=== PATIENT | female | born 1945 | race Caucasian/White ===

== ENCOUNTER 2016-11-12 07:45 | Day surgery (SDC) | payer OTHER ==
[2016-11-12 08:19] LABS: HEMOGLOBIN 12.9 g/dL (12.2-16.2)
[2016-11-12 08:20] LABS: LYMPH # 1.7 K/mm3 (0.7-4.5); LYMPH % 29.5 % (10-50.0)
[2016-11-12 08:25] LABS: BUN 14 mg/dL (7-18); GFR (ESTIMATED) 55 ML/MIN (59-)
--- NOTE | 2016-11-12 10:50 | RADIOLOGY REPORT PS360 ---
CARDIAC CATHETERIZATION DATE OF CATHETERIZATION:11/12/2016 10:37 AM PROCEDURES: 1. Left heart catheterization 2. Left ventriculogram 3. Selective coronary angiogram 4. Drug-eluting stent deployment to the proximal mid LAD INDICATION FOR TEST: 1. Angina pectoris class III 2. Coronary artery disease 3. Nonsustained ventricular tachycardia 4. Syncope 5. 2 antianginal's with persistent class III angina Informed consent was obtained prior to the procedure. COMPLICATIONS: None ESTIMATED BLOOD LOSS: Less than 10 ml. TECHNIQUE: One percent lidocaine used to anesthetize the right anterior aspect of the wrist. The right radial artery was accessed via the Seldinger technique. A 6 Nigerian sheath was placed in the right radial artery. 2.5 mg of verapamil, 800 mcg of nitroglycerin and 5000 U Heparin were given through the arterial sheath. A trap hydrophilic catheter was used to perform left heart catheterization left ventriculogram and selective coronary angiogram. At the end of the diagnostic angiogram and additional 2000 units of heparin was administered intravenously producing an ACT out of range. A JL 36 Nigerian guide catheter was used intubate the left main artery and a BMW wire was placed in the mid LAD going into a septal tool and die repair. A 3 mm x 38 mm resolute Cobb stent was deployed at 14 steve reducing the stenosis to 10-20%. A 3 mm x 12 mm noncompliant balloon was placed in the most severe area and deployed at 20 steve to post dilate. 800 mcg of intracoronary nitroglycerin was administered and WILLIAM-3 flow was present both before and after the procedure. Brilinta 180 mg orally was given on the table prior to introduction of the stent. At the end of the procedure the ACT remain out of range. The apparatus was removed the sheath was removed good hemostasis was achieved using TR banding patient was transferred. [facility] area in stable condition ANGIOGRAPHIC RESULTS: 1. The left main artery normal 2. The left anterior descending artery has a proximal 30-40% stenosis followed by an additional 30-40% stenosis followed by a focal eccentric 80-90% stenosis. Distal to this there are additional 20% stenoses 3. The circumflex artery is codominant and has proximal 20 and mid vessel 30% stenoses. The large second obtuse marginal artery has a 60% concentric stenosis at a 2.25 mm area. This is proximal to 2 small to medium branches. 4. The right coronary artery is a codominant system and has mild 10-20% proximal stenoses and normal distally 5. The WILKINS ventriculogram reveals normal 65% 6. The left ventricular end-diastolic pressure 10 mmHg IMPRESSION: 1. Severe disease in the proximal to mid LAD as described above 2. Successful stenting of the proximal to mid LAD severe disease reduced to 0% with 1 drug-eluting stent 3. Persistent moderate to severe disease in a moderate to large second obtuse marginal artery 4. Normal ejection fraction 5. Normal left ventricular end-diastolic pressure PLAN: 1. Brilinta and aspirin for 6 months 2. LDL less than 55 3. Cardiac rehabilitation 4. Avoidance of tobacco products 5. Risk factor modification 6. Control of hypertension 7. Should patient continue to have recalcitrant angina the second obtuse marginal artery is amenable to stenting however I believe medical management is most warranted at this time
[2016-11-12 15:17] VITALS: BP 133/72
== END 2016-11-12 15:29 | disposition home or self-care (01) ==
LOC: CATHLAB 07:45
PROVIDERS: Internal Medicine
PROC: 4A023N7 Measurement of Cardiac Sampling and Pressure, Left Heart, Percutaneous Approach (ICD-10-PCS; principal; 2016-11-12)
PROC: B2111ZZ Fluoroscopy of Multiple Coronary Arteries using Low Osmolar Contrast (ICD-10-PCS; 2016-11-12)
PROC: B2151ZZ Fluoroscopy of Left Heart using Low Osmolar Contrast (ICD-10-PCS; 2016-11-12)
PROC: 027034Z Dilation of Coronary Artery, One Artery with Drug-eluting Intraluminal Device, Percutaneous Approach (ICD-10-PCS; 2016-11-12)
DX: I25.118 Atherosclerotic heart disease of native coronary artery with other forms of angina pectoris (principal); R55 Syncope and collapse; I10 Essential (primary) hypertension; E11.9 Type 2 diabetes mellitus without complications; I47.2 Ventricular tachycardia

== ENCOUNTER 2016-11-13 11:17 | Observation (INO) | payer OTHER ==
[2016-11-13] VITALS (7 sets, daily range): BP systolic 123–144; BP diastolic 52–79
[~2016-11-13] VITALS: Ht 157.5 cm; Wt 70.0 kg
[~2016-11-13 11:17] MED LIST: ADULT LOW DOSE81 MG PO; ASPIRIN 81MG TA81 MG PO; ATENOLOL100 MG PO; ATIVAN1 MG PO; BACTRIM DS 8001 TAB PO; FLAGYL 500MG.500 MG PO; FLEXERIL10 M1 PO; GABAPENTIN100 MG PO; GLYBURIDE 5MG TA5 MG PO; GLYBURIDE2.5 MG PO; HYOMAX0.125 MG PO; INSULIN GL100 UNITS/ SC; LANTUS INS100 UNITS/ SC; LEVOFLOXACIN 5500 M1 PO; LOMOTIL 2.5MG.2.5 MG PO; LORAZEPAM1 MG PO; LOTREL 10 MG-401 CAP PO; MECLIZINE25 MG PO; METFORMIN500 MG PO; MIRALAX(PO17 GM/1 PA PO; OMEPRAZOLE40 MG PO; ONGLYZA5 MG PO; PERCOCET 325 MG1 TA4 PO; PHENERGAN 25MG.25 M1 PO; PROMETHAZINE25 M1 PO; SYNTHROID 0.00.05 MG PO; SYNTHROID0.025 MG PO; TENORMIN50 MG PO; TESSALON PERLE100 MG PO; TRAMADOL 50MG T50 MG PO; TRAMADOL HYDROC50 M1 PO; TRAMADOL50 M1 PO
--- NOTE | 2016-11-13 11:19 | Emergency Room Report ---
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 Clinical Suspician of Infection? Mental Status: Sepsis Risk: Have you (or family members/close friends) recently traveled outside the [place]? If Yes, where/when: Have you had exposure to infectious disease within the past month? TB? Other? Specify: Comment The patient arrives by ambulance complaining of chest pain. She had a stent performed yesterday by Dr. Alcala. She says that she began having the pain while in the hospital, but was told that it was normal. She says that she was up all my long and could not sleep. She called Dr. Alcala today and was advised to come to the emergency room. She says that she was given nitroglycerin during transport and her pain eased up so that she now just has pressure. She says the pressure in her chest has been an ongoing chronic problem which is not new. She says that when she came in for her cardiac cath yesterday she had the pressure at that time as it had been ongoing for some time. She says that she had told Dr. Alcala about that pressure the day before and that is what had led to her cardiac cath. She was given 2 new medications after her procedure, but states that she has not taken either of the new medications yet. She is on aspirin at home. She does not have nitroglycerin at home. ALLERGIES Coded Allergies: Penicillins (I-HIVES 01/13/16) codeine (ABD PAIN 01/13/16) erythromycin base (From E-MYCIN) (NA-NAUSEA/VOMITING 01/13/16) iodine (I-RASH 07/18/16) tuberculin,PPD,multi-puncture (10/06/16) Home Medications Active Scripts Atenolol (Tenormin) 50 MG PO BID #60 TAB Ref 4 Prov: 10/07/16 Reported Medications AMLODIPINE BESYLATE/BENAZEPRIL (Lotrel 10-40 MG Capsule) 1 CAP PO DAILY Levothyroxine Sodium (Synthroid 0.05MG) 0.05 MG PO DAILY Aspirin (Adult Low Dose Aspirin EC) 81 MG PO QHS Glyburide (Glyburide 5MG) 10 MG PO BID Gabapentin (Gabapentin 100MG) 200 MG PO TID Lorazepam (Ativan 1MG) 1 MG PO TID #90 TAB Ticagrelor (Brilinta) 90 MG PO BID Insulin Glargine (Lantus Insulin Vial) 37 UNITS SC BID Atorvastatin Calcium 40 MG PO QHS #30 History Medical History General CAD? Yes Angina: Yes [place]: No Hypertension? Yes Hyperlipidemia? Yes CHF? No DVT? No PE? No COPD? No Asthma? No Anemia? No GERD? Yes Gastric ulcers? No GI Bleed? No Hernia? No Thyroid Problems? Yes Hypothyroidism? Yes CVA? No Seizures? No Diabetes? Yes Insulin Dependent: Yes Insulin Pump: No Home FSBS? Yes Renal Insuffiency? No End Stage Renal Disease? No UTI? Yes Stones? No BPH? No GB Disease: Yes Nephritic Syndrome? No Asplenia? No Hepatitis? No Sickle Cell Disease? No Arthritis? No Migraines? No Cataracts? Yes Glaucoma? No MRSA? No HIV? No TB? No Anxiety? Yes Depression? Yes Cancer? Yes Site: CERVIX More? Yes Additional hx: Echo 2005 Neg Cardiolyte 01/16/2016 63% EF Carotids 20-49% stenosis 07/04/2014 Holter, rare ectopy PVC's, PAC's 2010 heart cath: mild irregularities LAD, RCA CT head 10/02/2005 Immunization Hx DT/Tetanus Unknown Flu 2015-FSN Pneumonia Received In Past Surgical Hx Previous Surgery?Y CHOLECYSTECTOMY TUBAL LIGATION D & C EGD COLONOSCOPY VAGINAL HYSTERCTOMY Family History Family Hx Diabetes Yes CAD Yes Hypertension Yes Hyperlipidemia Yes Cancer Yes TB Yes Social History Smoking Hx Packs/day 1 1/2 - 2 Packs Alcohol Alcohol: No Additionial History Additional History Cardiac cath results reviewed. The patient had severe disease in her left anterior descending, 80-90 percent stenosis. She had a stent placed. She has a 60 percent stenosis of the second obtuse marginal which was felt to be amenable to stenting if she has recalcitrant angina. Review of Systems All Other Systems Reviewed and Negative Constitutional denies diaphoresis Respiratory shortness of breath Cardiovascular chest pain Physical Exam Vital Signs Vital Signs Date Time Temp Pulse Resp B/P Pulse O2 O2 Flow FiO2 Ox Delivery Rate 11/13 1421 97.9 63 18 139/73 98 2 11/13 1322 63 18 133/56 98 2 11/13 1242 66 18 142/78 99 2 11/13 1218 64 18 129/74 99 2 11/13 1117 97 11/13 1117 98.1 72 18 140/79 97 General Appearance no apparent distress Eye Exam - bilateral eye normal exam, bilateral eye PERRL, bilateral eye EOMI Ear, Nose, Throat hearing grossly normal, normal ENT inspection Neck normal inspection, non-tender, supple, full range of motion Respiratory Status Yes: trachea midline, chest symmetrical, non tender chest. No: respiratory distress. Lung Sounds bilateral: normal breath sounds, lungs clear. Cardiovascular normal exam, regular rate/rhythm, no peripheral edema, no gallop, no JVD, no murmur, no rub, normal peripheral pulses Peripheral Pulses Pulses normal Yes Gastrointestinal normal bowel sounds, normal exam, non tender, soft, no organomegaly Extremities sling on RIGHT arm, 2 x 2 gauze and Tegaderm present over angiogram puncture wound RIGHT wrist. no erythema or edema at puncture site. States nontender. Neurologic alert, lawn mower II-XII nml as tested, normal exam, oriented x 3 Mental status normal mood/affect Skin intact, normal color, warm/dry Medical Decision Making LABS/Meds/Orders Pt receiving controlled substance in ED? No Results/Orders Laboratory Tests 11/13/16 1355: Urine Color DK YELLOW, Urine Appearance CLEAR, Urine pH 6.0, Ur Specific [place] 1.025, Urine Protein 2+ H, Urine Ketones NEGATIVE, Urine Blood 2+ H, Urine Nitrate NEGATIVE, Urine Bilirubin NEGATIVE, Urine Urobilinogen 0.2, Ur Leukocyte Esterase NEGATIVE, Urine WBC 5-10, Ur Squamous Epith Cells 3-5, Urine Bacteria 2 +, Hyaline Casts 3-5, Urine Mucus 1+, Urine Glucose 2+ H 11/13/16 1200: Lactic Acid 1.6 11/13/16 1155: Triglycerides 155, Cholesterol 189, LDL Cholesterol 121.0, VLDL Cholesterol 31.0 , HDL Cholesterol 37.0 L, TSH 1.46, Free T4 Index 7.9, Thyroxine (T4) 10.6, T3 Uptake 30 L 11/13/16 1155: Sodium 140, Potassium 3.8, Chloride 106, Carbon Dioxide 24, BUN 20 H, Creatinine 1.2 H, Estimated Creat Clear 49 L, Estimated GFR (MDRD) 44 L, Glucose 227 H, Calcium 9.8, Total Bilirubin 1.2 H, AST 23, ALT 49, Alkaline Phosphatase 112, Creatine Kinase 153, CK-MB (CK-2) Rel Index 2.6, CK and CKMB Interp 4.0 H, Troponin I 0.71 H, Total Protein 8.1, Albumin 3.9, Globulin 4.2 H, Albumin/Globulin Ratio 0.9 L, WBC 18.0 H, RBC 4.96, Hgb 14.0, Hct 42.8, MCV 86.2, RDW 15.4, Plt Count 197, Gran % 85.7 H, Gran # 15.4 H, Lymphocytes % 12.1, Monocytes % 2.2, Lymphocytes # 2.2, Monocytes # 0.4, PUBS MCHC 32.7, MCH 28.2 11/13/16 1120: WBC 22.4 *H, RBC 5.15, Hgb 14.8, Hct 44.2, MCV 85.9, RDW 15.3, Plt Count 238, Gran % 86.9 H, Gran # 19.5 H, Total Counted 100, Lymphocytes % 10.6, Monocytes % 2.5, Neutrophils 86 H, Band Neutrophils 3, Lymphocytes (Manual) 9 L, Lymphocytes # 2.4, Monocytes (Manual) 2, Monocytes # 0.6, Platelet Estimate NORMAL, PUBS MCHC 33.5, MCH 28.7 Current Medication Orders Sig/Wilver Start time Last Medication Dose Route Stop Time Status Admin Levothyroxine Sodium 0.05 MG DAILY 11/14 09 AC PO Lisinopril 20 MG DAILY 11/14 09 AC PO Glyburide 5 MG DAILY-DM 11/14 0700 AC PO Atenolol 50 MG BID 11/13 2099 AC PO Gabapentin 100 MG TID 11/13 2100 AC PO Lorazepam 1 MG TID 11/13 2100 AC PO Pantoprazole Sodium 40 MG QHS 11/13 2100 AC PO Diagnostic Test (Pha) 1 EACH W/MEALS&HS 11/13 1700 AC FS 01/12 1659 Insulin Human [rDNA See Dose W/MEALS&HS 11/13 1700 AC origin] Insts (1) SC Isosorbide 30 MG DAILY 11/13 1415 AC 11/13 Mononitrate PO 1547 Ranolazine 500 MG BID 11/13 1415 AC 11/13 PO 1547 Ticagrelor 90 MG BID 11/13 1415 AC 11/13 PO 1548 Amlodipine Besylate 5 MG DAILY 11/13 1408 AC 11/13 PO 1546 Aspirin 81 MG DAILY 11/13 1400 AC PO Sodium Chloride 10 ML PRN PRN 11/13 1130 AC IV 11/14 1127 Dose Instructions: (1)Insulin Human [rDNA origin]: SEE ADMIN CRITERIA Orders Procedure Date/time Status CBC WITH AUTO DIFF 11/14 UNK Active BASIC METABOLIC PROFILE 11/14 UNK Active DIET-1800 CALORIE ADA 11/13 D Active CULTURE, URINE 11/13 1355 Active Decision to admit 11/[address] HEAD REQ 11/13 1232 Active CBC WITH AUTO DIFF 11/13 1228 Complete CULTURE, BLOOD 11/13 1150 Active URINALYSIS/COMPLETE 11/13 1150 Complete LACTIC ACID 11/13 1150 Complete ELECTROCARDIOGRAM REQUEST 11/13 1128 Active IV SALINE LOCK 11/13 1128 Active OXYGEN PER NURSE 11/13 1128 Active CBC WITH AUTO DIFF 11/13 1128 Complete CARDIAC ENZYMES 11/13 1128 Complete CHEM 12 PROFILE 11/13 1128 Complete DIFFERENTIAL-WBC 11/13 1120 Complete 12 LEAD EKG-[facility] (INITIAL) 11/13 UNK Active VITAL SIGNS 11/13 UNK Active THYROID PANEL 2 (WITH TSH) 11/13 UNK Complete LIPID PROFILE 11/13 UNK Complete FSBS REQUEST BY CARE AREA 11/13 UNK Active CM/EKG CM/EKG Comments EKG interpreted by Jame Roth MD: Rhythm: sinus Rate: 73 [place]: normal Ectopy: none Conduction: normal ST Segment Changes: none T Wave Changes: Nonspecific Q Waves: none No evidence of acute ischemia or injury Prior electrocardiagrams reviewed. No change from prior tracings. XRAY/CT/US XRAY/CT/US XRAY chest Comment Chest x-ray interpreted by Jame Roth M.D. No infiltrate, pneumothorax, pleural effusion, or wide mediastinum. CT head Comment CT scan interpreted by radiologist: Negative Progress - Patient seen by MARIE Dunbar for Dr. Alcala. 1:40 PM: Case discussed with Manjinder again. He says the patient can be admitted to Dr. Alcala service and he will write admission orders. Departure Departure Disposition Still a Patient Clinical Impression Primary Impression: Chest pain, precordial Secondary Impressions: Headache Qualifiers: Headache type: unspecified Headache chronicity pattern: acute headache Intractability: not intractable Qualified Code: R51 - Headache Leukocytosis Qualifiers: Leukocytosis type: unspecified Qualified Code: D72.829 - Elevated white blood cell count, unspecified Condition STABLE Referrals Allyson Hall MD (Family) ED Critical Care Critical Care No at 1600
[2016-11-13] MEDS ORDERED: ATORVASTATIN CA40 MG PO (11:26)
[2016-11-13 11:44] LABS: HEMOGLOBIN 14.8 g/dL (12.2-16.2); LYMPH # 2.4 K/mm3 (0.7-4.5); LYMPH % 10.6 % (10-50.0)
[2016-11-13 12:24] LABS: NEUTROPHILS 86 % (42-76)
[2016-11-13 12:39] LABS: LYMPH # 2.2 K/mm3 (0.7-4.5); LYMPH % 12.1 % (10-50.0)
--- NOTE | 2016-11-13 13:14 | RADIOLOGY REPORT PS360 ---
CT HEAD W/O CONTRAST HISTORY: Severe headache HEADACHE ORDERING PHYSICIAN: Jame Roth MD PATIENT AGE: 71 years COMPARISON: 10/05/2016 TECHNIQUE: Axial images obtained without contrast. Brain and bone windows reviewed. FINDINGS: No midline shift, mass effect, intracranial hemorrhage, hydrocephalus, or extra-axial fluid collection is evident. The calvarium has an unremarkable appearance. No mastoid effusion. The visualized paranasal sinuses are unremarkable. IMPRESSION: Negative CT head without contrast. No acute finding.
--- NOTE | 2016-11-13 13:30 | RADIOLOGY REPORT PS360 ---
CHEST-PORTABLE HISTORY: CHEST PAIN ORDERING PHYSICIAN: Jame Roth MD PATIENT AGE: 71 years COMPARISON: None available FINDINGS: The cardiomediastinal silhouette and pulmonary vascularity are within normal limits. There is artery is present. The lungs are clear without infiltrates, suspicious nodules, or pleural effusions. No acute bony abnormalities. IMPRESSION: Coronary artery stent present otherwise no change with no acute finding
[2016-11-13 14:07] LABS: URINE BILIRUBIN - DIPSTICK NEGATIVE (NEG); URINE BLOOD 2+ (NEG)
--- NOTE | 2016-11-13 14:24 | HISTORY AND PHYSICAL REPORT ---
Demographics: Admit date: 11/13/16 Chief complaint: Chest pain, headache PRIMARY DIAGNOSIS: postprocedural chest pain and headache Allergies: Coded Allergies: Penicillins (I-HIVES 01/13/16) codeine (ABD PAIN 01/13/16) erythromycin base (From E-MYCIN) (NA-NAUSEA/VOMITING 01/13/16) iodine (I-RASH 07/18/16) tuberculin,PPD,multi-puncture (10/06/16) History of present illness: History of present illness: 71-year-old white female seen in the emergency department today for onset of chest pain and headache which started yesterday after cardiac catheterization and subsequent coronary artery stenting. Patient states the symptoms were not severe when she LEFT the hospital yesterday but continued to progress overnight to the point that she did not sleep well. A follow-up phone call from the cardiac mechanical laboratory technician was placed today and due to the symptoms the patient was encouraged to come to the hospital for further evaluation. Emergency medical services was contacted and transported patient to the emergency department. She received nitroglycerin sublingual en route with some improvement in the chest pain. She has had a persistent chest pressure that feels as if "my bra is 4 times too small" that has been persistent prior and after coronary stenting. Patient relates a headache that has been persistent since the coronary stenting yesterday but does not include blurred vision or neurologic changes. In the emergency department patient was evaluated with CT of the head which showed no acute change. Electrocardiogram showed sinus rhythm with nonspecific ST-T abnormalities. Troponin was elevated but was anticipated due to coronary intervention yesterday. Of note patient's white count was 5700 yesterday and 22, 000 today with repeat complete blood count showed white count of 18,000. Decision was made to admit the patient for observation and medical management. Patient denies any fever, chills or cough. Her radial access site for her cardiac catheterization appears without erythema or swelling. Pulse is palpable. Past medical history: Family HX Diabetes Yes CAD Yes Hypertension Yes Hyperlipidemia Yes Cancer Yes TB Yes Immunization HX DT/Tetanus Unknown Flu 2015-FSN Pneumonia Received In Past General CAD? Yes Angina: Yes [place]: No Hypertension? Yes Hyperlipidemia? Yes CHF? No DVT? No PE? No COPD? No Asthma? No Anemia? No GERD? Yes Gastric ulcers? No GI Bleed? No Hernia? No Thyroid Problems? Yes Hypothyroidism? Yes CVA? No Seizures? No Diabetes? Yes Insulin Dependent: Yes Insulin Pump: No Home FSBS? Yes Renal Insuffiency? No UTI? Yes Stones? No BPH? No GB Disease: Yes Nephritic Syndrome? No Asplenia? No Hepatitis? No Sickle Cell Disease? No Arthritis? No Migraines? No Cataracts? Yes Glaucoma? No MRSA? No HIV? No TB? No Anxiety? Yes Depression? Yes Cancer? Yes Site: CERVIX More? Yes Additional hx: Echo 2005 Neg Cardiolyte 01/16/2016 63% EF Carotids 20-49% stenosis 07/04/2014 Holter, rare ectopy PVC's, PAC's 2010 heart cath: mild irregularities LAD, RCA CT head 10/02/2005 Past Surgical HX Previous Surgery?Y CHOLECYSTECTOMY TUBAL LIGATION D & C EGD COLONOSCOPY VAGINAL HYSTERCTOMY CARDIAC STENT X1 10/2016 Current home meds: Active Scripts Atenolol (Tenormin) 50 MG PO BID #60 TAB Ref 4 Prov: 10/07/16 Reported Medications AMLODIPINE BESYLATE/BENAZEPRIL (Lotrel 10-40 MG Capsule) 1 CAP PO DAILY Levothyroxine Sodium (Synthroid 0.05MG) 0.05 MG PO DAILY Aspirin (Adult Low Dose Aspirin EC) 81 MG PO QHS Glyburide (Glyburide 5MG) 10 MG PO BID Gabapentin (Gabapentin 100MG) 200 MG PO TID Lorazepam (Ativan 1MG) 1 MG PO TID #90 TAB Insulin Glargine (Lantus Insulin Vial) 37 UNITS SC BID Atorvastatin Calcium 40 MG PO QHS #30 Social Hx: Smoking HX Tobacco No Packs/day 1 1/2 - 2 PACKS Alcohol Alcohol: No Hx of Drug Use Drug Use? No Patient's support system is good Review of systems: Constitutional No: no symptoms reported. Respiratory No: no symptoms reported. Cardiovascular see HPI, chest pain Gastrointestinal/Abdominal No no symptoms reported Genitourinary No: no symptoms reported. Musculoskeletal No: no symptoms reported. Neurological No: no symptoms reported. Exam: Lab data for last 24 hours: Laboratory Tests 11/13/16 1355: Urine Color DK YELLOW, Urine Appearance CLEAR, Urine pH 6.0, Ur Specific [place] 1.025, Urine Protein 2+ H, Urine Ketones NEGATIVE, Urine Blood 2+ H, Urine Nitrate NEGATIVE, Urine Bilirubin NEGATIVE, Urine Urobilinogen 0.2, Ur Leukocyte Esterase NEGATIVE, Urine Glucose 2+ H 11/13/16 1200: Lactic Acid 1.6 11/13/16 1155: Sodium 140, Potassium 3.8, Chloride 106, Carbon Dioxide 24, BUN 20 H, Creatinine 1.2 H, Estimated Creat Clear 49 L, Estimated GFR (MDRD) 44 L, Glucose 227 H, Calcium 9.8, Total Bilirubin 1.2 H, AST 23, ALT 49, Alkaline Phosphatase 112, Creatine Kinase 153, CK-MB (CK-2) Rel Index 2.6, CK and CKMB Interp 4.0 H, Troponin I 0.71 H, Total Protein 8.1, Albumin 3.9, Globulin 4.2 H, Albumin/Globulin Ratio 0.9 L, WBC 18.0 H, RBC 4.96, Hgb 14.0, Hct 42.8, MCV 86.2, RDW 15.4, Plt Count 197, Gran % 85.7 H, Gran # 15.4 H, Lymphocytes % 12.1, Monocytes % 2.2, Lymphocytes # 2.2, Monocytes # 0.4, PUBS MCHC 32.7, MCH 28.2 11/13/16 1120: WBC 22.4 *H, RBC 5.15, Hgb 14.8, Hct 44.2, MCV 85.9, RDW 15.3, Plt Count 238, Gran % 86.9 H, Gran # 19.5 H, Total Counted 100, Lymphocytes % 10.6, Monocytes % 2.5, Neutrophils 86 H, Band Neutrophils 3, Lymphocytes (Manual) 9 L, Lymphocytes # 2.4, Monocytes (Manual) 2, Monocytes # 0.6, Platelet Estimate NORMAL, PUBS MCHC 33.5, MCH 28.7 Microbiology 11/14 1199 BLOOD: Anaerobic Blood Culture - RECD 11/14 1199 BLOOD: Aerobic Blood Culture - RECD 11/13 1200 BLOOD: Anaerobic Blood Culture - RECD 11/14 1199 BLOOD: Aerobic Blood Culture - RECD Admission vital signs: 1ST Vital Signs Result Date Time Pulse Ox 97 11/13 111 B/P 140/79 11/13 1116 Temp 98.1 11/13 1116 Pulse 72 11/13 1117 Resp 18 11/13 1117 O2 Flow Rate 2 11/13 1218 Exam General appearance: alert, awake, no acute distress Neck: no carotid bruit, no JVD Cardiovascular: regular rate & rhythm, no murmur Respiratory: clear to auscultation, good air movement ABD: soft, no tenderness Extremities: moves all, no peripheral edema Neuro: alert, intact, oriented Plan: Problem List 1. Chest pain Assessment/Plan With no acute electrocardiogram changes, presume this to be postprocedural vasospasm. Continue Norvasc and add nitrates along with Ranexa. Monitor on telemetry for arrhythmias post procedure. 2. Diabetes Status Chronic Assessment/Plan Continue glyburide therapy and cover with sliding scale insulin. 3. Hypertension Status Chronic Assessment/Plan Continue atenolol, and Lotrel (Norvasc/lisinopril) 4. Hypothyroid Status Chronic Assessment/Plan Continue thyroid replacement. We'll check thyroid panel. 5. Anxiety Status Chronic 6. GERD (gastroesophageal reflux disease) Assessment/Plan Continue PPI. 7. Headache Assessment/Plan CT of the head reveals no acute changes. We'll use Tylenol. 8. CAD (coronary artery disease), rincon coronary artery Assessment/Plan Status post RIGHT coronary artery drug-eluting stent placed 11/12/16. Continue aspirin and Brilinta. 9. Leukocytosis Assessment/Plan Etiology unknown. No acute process noted on chest x-ray. No visible signs of infection a RIGHT radial access site. Pt did receive steroids for IV contrast allergy prophylaxis yesterday which is likely the cause for her elevated WBC. 10. Stented coronary artery Assessment/Plan On DAPT. 11. Hyperlipidemia Assessment/Plan Start statin therapy and check liver and lipid profile. Plan: 1. We'll start isosorbide mononitrate 30 mg daily along remote with Ranexa 500 mg twice a day for presumed post coronary stenting vasospasm as a source of chest pain. 2. Resume home medications and add statin therapy. at [id number]
[2016-11-13] MEDS ORDERED: BRILINTA90 MG PO (15:34)
[2016-11-13 15:55] LABS: FREE THYROXIN INDEX 7.9 ug/dl (5.93-13.13)
[2016-11-14 03:47] VITALS: BP 108/57
--- NOTE | 2016-11-14 07:31 | PHARMACY CLINIC NOTE ---
Patient Demographics Patient Demographics Admission date: 11/13/16 Date: 11/14/16 Time: 0730 Allergies Coded Allergies: Penicillins (I-HIVES 01/13/16) codeine (ABD PAIN 01/13/16) erythromycin base (From E-MYCIN) (NA-NAUSEA/VOMITING 01/13/16) iodine (I-RASH 07/18/16) tuberculin,PPD,multi-puncture (10/06/16) HEIGHT- FT: 5 IN: 2.00 K.967 VTE General Information Labs: Laboratory Tests 11/13 11/13 1155 1120 Hematology Hgb (12.2 - 16.2 g/dL) 14.0 14.8 Hct (37.0 - 47.0 %) 42.8 44.2 Plt Count (142 - 424 K/mm3) 197 238 Disclaimer The following section includes nursing documentation that has been pulled in for pharmacy review. Patient's VTE score: 4 Patient's VTE Risk: LOW RISK Clinical trial participant? No VTE prophylaxis [id number] [id number] VTE prophylaxis ordered? Yes Type of prophylaxis/treatment: WAYNE at 0731
[2016-11-14 07:34] VITALS: BP 125/62
--- NOTE | 2016-11-14 07:46 | ACUTE CARE PROGRESS NOTE (QUA) ---
See Addendum Progress Notes Subjective Date 11/14/16 Time 0734 Note 71 yo WF in bed in NAD. Headache persists despite morphine/phenergan combo and then imitrex. Headache started after JARRETT placed and Brilinta started. Chest pains have resolved. Mild chest pressure persists unchanged. Objective Findings Last VS-Temp:97.9 B/P:125/62 Pulse:60 Resp:20 SaO2:99 ROOM AIR Last weight lbs:154 oz:4 K.967 Method:Bed Scales Exam General appearance: alert, awake Assessment/Plan Problem List 1. Chest pain Assessment/Plan: Likely due to recent coronary intervention. Resolved on ranexa and imdur but due to HORTA will stop imdur. 2. Diabetes Status: Chronic 3. Hypertension Status: Chronic 4. Hypothyroid Status: Chronic 5. Anxiety Status: Chronic 6. GERD (gastroesophageal reflux disease) 7. Headache Assessment/Plan: Continues. Will stop norvasc and imdur. Get CT of head with contrast to rule out aneurysm. Qualifiers: Headache type: unspecified Headache chronicity pattern: acute headache Intractability: not intractable Qualified Code: R51 - Headache 8. CAD (coronary artery disease), [place] coronary artery 9. Leukocytosis Assessment/Plan: Likely due to steroids used during cath. Qualifiers: Leukocytosis type: unspecified Qualified Code: D72.829 - Elevated white blood cell count, unspecified 10. Stented coronary artery Assessment/Plan: Continue DAPT with ASA and Brilinta. 11. Hyperlipidemia Assessment/Plan: Continue statin. Patient condition Stable Plan: As above. Check CT of head with contrast. STop norvasc and imdur. This inpt stay is expected to cross 2 MNs from start of care Yes at 0746
[2016-11-14 07:59] LABS: HEMOGLOBIN 11.7 g/dL (12.2-16.2)
[2016-11-14 08:01] LABS: LYMPH # 1.9 K/mm3 (0.7-4.5); LYMPH % 25.4 % (10-50.0)
[2016-11-14 09:00] VITALS: BP 125/62
--- NOTE | 2016-11-14 12:41 | RADIOLOGY REPORT PS360 ---
CT HEAD-W/WO CONTRAST INDICATION: POST PROCEDURAL HEADACHE AND CHEST PAIN ORDERING PHYSICIAN: Tomás Alcala MD PATIENT AGE: 71 years COMPARISON: None TECHNIQUE: Axial images are obtained without and with contrast. FINDINGS: No midline shift, mass effect, intracranial hemorrhage, or hydrocephalus is evident. No enhancing lesions are evident. No large aneurysms. No sinus air-fluid level or mastoid effusion. IMPRESSION: Negative CT head without and with contrast.
[2016-11-14 19:49] VITALS: BP 132/66
[2016-11-15 00:18] VITALS: BP 120/58
[2016-11-15 04:39] VITALS: BP 130/62
[2016-11-15 08:00] VITALS: BP 137/70
--- NOTE | 2016-11-15 08:34 | ACUTE CARE PROGRESS NOTE (QUA) ---
Progress Notes Subjective Date 11/15/16 Time 0830 Note 71 yo WF in bed in NAD. Headache improved some overnight enough to allow her to sleep. IV toradol helped as well as the combination of Morphine and phenergan. IV infiltrated and multiple sticks attempted with new site in left hand that now appears to be infiltrated also. Patient is asking about Home. Objective Findings Last VS-Temp:97.9 B/P:130/62 Pulse:70 Resp:18 SaO2:93 ROOM AIR Last weight lbs:154 oz:4 K.967 Method:Bed Scales Exam General appearance: alert, awake, no acute distress Cardiovascular: regular rate & rhythm Respiratory: clear to auscultation Reviewed: medications, vital signs, lab results Assessment/Plan Problem List 1. Chest pain 2. Diabetes Status: Chronic 3. Hypertension Status: Chronic 4. Hypothyroid Status: Chronic 5. Anxiety Status: Chronic 6. GERD (gastroesophageal reflux disease) 7. Headache Qualifiers: Headache type: unspecified Headache chronicity pattern: acute headache Intractability: not intractable Qualified Code: R51 - 8. CAD (coronary artery disease), [place] coronary artery 9. Leukocytosis Qualifiers: Leukocytosis type: unspecified Qualified Code: D72.829 - 10. Stented coronary artery 11. Hyperlipidemia Patient condition Stable Plan: we will pull IV and discharged home today. We'll give additional Toradol this a.m. but will do by mouth since IV is infiltrated. We'll continue dual antiplatelet therapy and see the patient back in one week. This inpt stay is expected to cross 2 MNs from start of care Yes at 0803
[2016-11-15] MEDS ORDERED: TORADOL10 M1 PO (08:38)
[2016-11-15] MEDS ORDERED: RANEXA500 M1 PO (08:39)
--- NOTE | 2016-11-15 08:45 | DISCHARGE SUMMARY STANDARD ---
Demographics Admit date: 11/13/16 Discharge date: 11/15/16 History of present illness History of present illness 71-year-old white female seen in the emergency department today for onset of chest pain and headache which started yesterday after cardiac catheterization and subsequent coronary artery stenting. Patient states the symptoms were not severe when she LEFT the hospital yesterday but continued to progress overnight to the point that she did not sleep well. A follow-up phone call from the cardiac operations label clerk was placed today and due to the symptoms the patient was encouraged to come to the hospital for further evaluation. Emergency medical services was contacted and transported patient to the emergency department. She received nitroglycerin sublingual en route with some improvement in the chest pain. She has had a persistent chest pressure that feels as if "my bra is 4 times too small" that has been persistent prior and after coronary stenting. Patient relates a headache that has been persistent since the coronary stenting yesterday but does not include blurred vision or neurologic changes. In the emergency department patient was evaluated with CT of the head which showed no acute change. Electrocardiogram showed sinus rhythm with nonspecific ST-T abnormalities. Troponin was elevated but was anticipated due to coronary intervention yesterday. Of note patient's white count was 5700 yesterday and 22, 000 today with repeat complete blood count showed white count of 18,000. Decision was made to admit the patient for observation and medical management. Patient denies any fever, chills or cough. Her radial access site for her cardiac catheterization appears without erythema or swelling. Pulse is palpable. Hospital Course Hospital Course: Patient underwent CT of the head with and without contrast to evaluate for possible aneurysm as etiology of her headaches. There were no aneurysms found with no acute process noted. It was felt that the headaches may be possibly an ALLERGIC reaction from IV contrast use which she has had difficulty with in the past. IV steroids were given along with IV Toradol with some improvement in headache symptoms. IV fluids were given during her hospital stay to help flush the IV contrast out. Patient's headache had improved at time of discharge. She was felt stable for discharge with follow-up in one week. She will continue home medications with the addition of Ranexa 500 mg twice a day for her nares spasm post procedure. By mouth Toradol given for 10 doses. Discharge diagnoses Problem List 1. Chest pain 2. Diabetes Status Chronic 3. Hypertension Status Chronic 4. Hypothyroid Status Chronic 5. Anxiety Status Chronic 6. GERD (gastroesophageal reflux disease) 7. Headache 8. CAD (coronary artery disease), [place] coronary artery 9. Leukocytosis 10. Stented coronary artery 11. Hyperlipidemia Medications Medications: Discharge meds are as noted. Aspirin 81 mg daily Brilinta 90 mg twice a day Ranexa 500 mg twice a day Lotrel 5/20 mg daily Atorvastatin 40 mg daily Atenolol 50 mg twice a day Glyburide and insulin as previous with taken home. By mouth Toradol when necessary. Follow up Follow up in office in: 5 DAYS with: Tomás Alcala MD Comment: Patient has an appointment scheduled for next week which she will keep. at 0844
[2016-11-15 08:50] VITALS: BP 137/70
[2016-11-15 09:00] VITALS: BP 137/70
== END 2016-11-15 11:00 | disposition home or self-care (01) ==
LOC: ER 11:17 → 2ND 13:33
PROVIDERS: Emergency Medicine; Internal Medicine
DX: R07.9 Chest pain, unspecified (principal); D72.829 Elevated white blood cell count, unspecified; I25.10 Atherosclerotic heart disease of native coronary artery without angina pectoris; I10 Essential (primary) hypertension; E78.5 Hyperlipidemia, unspecified; E03.9 Hypothyroidism, unspecified; E11.9 Type 2 diabetes mellitus without complications; F41.9 Anxiety disorder, unspecified; K21.9 Gastro-esophageal reflux disease without esophagitis; R51 Headache; Z91.041 Radiographic dye allergy status; Z95.5 Presence of coronary angioplasty implant and graft; Z79.4 Long term (current) use of insulin; Z79.82 Long term (current) use of aspirin; Z79.899 Other long term (current) drug therapy
CPT/HCPCS: G0378; Q9967

== ENCOUNTER → 2016-12-12 | Outpatient (CLI) | payer OTHER ==
[~2016-12-12] MED LIST changes: +ATORVASTATIN CA40 MG PO; +BRILINTA90 MG PO; +RANEXA500 M1 PO; +TORADOL10 M1 PO
== END ==
LOC: RT 14:20
DX: I49.3 Ventricular premature depolarization (principal)